=== PATIENT | female | born 2000 | race Two or more races ===

== ENCOUNTER 2018-03-21 17:23 | Emergency (ER) | payer SELFPAY ==
[~2018-03-21] VITALS: Ht 162.6 cm; Wt 47.2 kg
[2018-03-21 17:34] VITALS: Ht 162.6 cm; Wt 47.2 kg
[2018-03-21 19:24] VITALS: BP 97/63
== END 2018-03-21 19:25 | disposition home or self-care (01) ==
LOC: ED 17:23
DX: S16.1XXA Strain of muscle, fascia and tendon at neck level, initial encounter (principal); S80.02XA Contusion of left knee, initial encounter; M54.5 Low back pain; Z88.8 Allergy status to other drugs, medicaments and biological substances; V49.9XXA Car occupant (driver) (passenger) injured in unspecified traffic accident, initial encounter; Y93.89 Activity, other specified; Y92.89 Other specified places as the place of occurrence of the external cause; Y99.8 Other external cause status

== ENCOUNTER 2018-03-26 18:25 | Emergency (ER) | payer SELFPAY ==
[~2018-03-26] VITALS: Ht 162.6 cm; Wt 48.6 kg
[2018-03-26 18:31] VITALS: Ht 162.6 cm; Wt 48.6 kg
[2018-03-26 23:24] VITALS: BP 99/51
== END 2018-03-26 23:24 | disposition home or self-care (01) ==
LOC: ED 18:25
DX: F07.81 Postconcussional syndrome (principal); J45.909 Unspecified asthma, uncomplicated; Z88.8 Allergy status to other drugs, medicaments and biological substances